=== PATIENT | female | born 1945 | race Native Hawaiian/Other Pacific Islander ===

== ENCOUNTER 2018-12-20 10:53 | Inpatient (IN) | payer MEDICARE, OTHER ==
[~2018-12-20] VITALS: Ht 162.6 cm; Wt 61.7 kg
[2018-12-20] MEDS ORDERED: ATEN25TA PO (11:27)
[2018-12-20] MEDS ORDERED: ZOLP5TAB8 PO (11:27)
[2018-12-20] MEDS ORDERED: PANT40TA4 PO (11:27)
[2018-12-20] MEDS ORDERED: METO-295 PO (11:27)
[2018-12-20] MEDS ORDERED: MECL12.582 PO (11:27)
[2018-12-20] MEDS ORDERED: PREG50CA PO (11:27)
[2018-12-20] MEDS ORDERED: AMIT25TA9 PO (11:27)
[2018-12-20] MEDS ORDERED: LEVE1000 PO (11:27)
[2018-12-20] MEDS ORDERED: TURM538C PO (11:27)
[2018-12-20] MEDS ORDERED: RANI-655 PO (11:27)
[2018-12-20] MEDS ORDERED: ROSU5TAB PO (11:27)
[2018-12-20] MEDS ORDERED: CHOL200078 PO (11:27)
[2018-12-20] MEDS ORDERED: GLUC-228 PO (11:27)
[2018-12-20] MEDS ORDERED: HYDR-3024 PO (11:27)
[2018-12-20] MEDS ORDERED: CETI-102 PO (11:27)
[2018-12-20 12:22] LABS: BASOPHILS # (AUTO) 0.1 K/uL (0.0-8.0); BASOPHILS % (AUTO) 1.2 % (0.0-2.0); EOSINOPHILS # (AUTO) 0.2 K/uL (0.0-0.7); HEMATOCRIT 41.3 % (31.2-41.9); HEMOGLOBIN 13.7 g/dL (10.9-14.3); LYMPHOCYTES # (AUTO) 1.8 K/uL (20.0-40.0); LYMPHOCYTES % (AUTO) 31.4 % (20.5-51.5); MEAN CORPUSCULAR HEMOGLOBIN 29.1 uug (24.7-32.8); MEAN CORPUSCULAR HGB CONC 33 g/dL (32.3-35.6); MEAN CORPUSCULAR VOLUME 87.8 fL (75.5-95.3); MONOCYTES # (AUTO) 0.4 K/uL (2.0-10.0); MONOCYTES % (AUTO) 7.3 % (0.0-11.0); NEUTROPHILS # (AUTO) 3.2 K/uL (1.8-8.9); NEUTROPHILS % (AUTO) 56.1 % (38.5-71.5); PLATELET COUNT (AUTO) 162 K/uL (179-408); WHITE BLOOD COUNT (AUTO) 5.7 K/uL (3.8-11.8)
[2018-12-20 12:27] LABS: CREATININE 0.9 mg/dL (0.6-1.3); POTASSIUM 4.5 mmol/L (3.5-5.1)
[2018-12-20] MEDS ORDERED: IOHEXOL 350 100 ML INFUS..BTL ONE (13:17)
[2018-12-20] MEDS ORDERED: SWABABLE VALVE TRANSFER SET EA MC ONE (13:18)
[2018-12-20] MEDS ORDERED: IV NORMAL SALINE 250 ML IV ONE (13:18)
[2018-12-20] MEDS ORDERED: IV NS 1000 ML 1,000 ML IV PRN ×2 (15:50→17:12)
[2018-12-20] MEDS ORDERED: ONDANSETRON 4 MG/2 ML VIAL IV PRN (16:00)
[2018-12-20] MEDS ORDERED: MECLIZINE HCL 25 MG TABLET PO PRN (16:00)
[2018-12-20] MEDS ORDERED: MAGNESIUM HYDROXIDE 30 ML LIQUID UDC PO PRN (16:00)
[2018-12-20] MEDS ORDERED: Z GUARD REMEDY PASTE 57 GM TUBE TOP PRN (16:00)
[2018-12-20 16:31] VITALS: BP 150/69
[2018-12-20] MEDS ORDERED: IBUPROFEN 400 MG TABLET PO PRN (16:45)
[2018-12-20] MEDS ORDERED: LEVO5TAB13 PO (17:47)
[2018-12-20] MEDS ORDERED: ZOLPIDEM 5 MG TABLET PO PRN (19:00)
[2018-12-20] MEDS ORDERED: hydrOXYzine HCL 10 MG TABLET PO PRN (19:00)
[2018-12-20] MEDS ORDERED: HOME MED MISCELLANEOUS XX SCH (19:00)
[2018-12-20] MEDS ORDERED: CETIRIZINE HCL 10 MG TABLET PO SCH (19:00)
[2018-12-20 19:59] VITALS: BP 91/56
[2018-12-21 05:40] VITALS: BP 90/62
[2018-12-21 06:35] LABS: BASOPHILS # (AUTO) 0.1 K/uL (0.0-8.0); BASOPHILS % (AUTO) 1.1 % (0.0-2.0); EOSINOPHILS # (AUTO) 0.2 K/uL (0.0-0.7); EOSINOPHILS % (AUTO) 3.4 % (0.0-7.0); HEMOGLOBIN 13.3 g/dL (10.9-14.3); LYMPHOCYTES # (AUTO) 2.2 K/uL (20.0-40.0); LYMPHOCYTES % (AUTO) 35.4 % (20.5-51.5); MEAN CORPUSCULAR HEMOGLOBIN 29.2 uug (24.7-32.8); MEAN CORPUSCULAR HGB CONC 33 g/dL (32.3-35.6); MONOCYTES # (AUTO) 0.4 K/uL (2.0-10.0); MONOCYTES % (AUTO) 6.5 % (0.0-11.0); NEUTROPHILS # (AUTO) 3.3 K/uL (1.8-8.9); NEUTROPHILS % (AUTO) 53.6 % (38.5-71.5); PLATELET COUNT (AUTO) 166 K/uL (179-408); RED BLOOD CELL COUNT(AUTO) 4.55 MIL/uL (3.63-4.92); WHITE BLOOD COUNT (AUTO) 6.2 K/uL (3.8-11.8)
[2018-12-21 06:45] LABS: CARBON DIOXIDE 29 mmol/L (21-32); CHLORIDE 106 mmol/L (98-107); GLUCOSE 92 mg/dL (74-106); PHOSPHOROUS 4.1 mg/dL (2.5-4.9); UREA NITROGEN, BLOOD 25 mg/dL (7-18)
[2018-12-21] MEDS ORDERED: PANTOPRAZOLE SODIUM 40 MG TABLET.DR PO SCH ×2 (07:00→09:00)
[2018-12-21] MEDS ORDERED: PREGABALIN 50 MG CAPSULE PO SCH (09:00)
[2018-12-21] MEDS ORDERED: ATENOLOL 25 MG TABLET PO SCH (09:00)
[2018-12-21] MEDS ORDERED: CHOLECALCIFEROL 1,000 UNIT TABLET PO SCH (09:00)
[2018-12-21 10:05] VITALS: BP 90/59
[2018-12-21 11:45] VITALS: BP 100/64
[2018-12-21] MEDS ORDERED: INFLUENZA VACCINE 2019-2020 0.5 ML DISP.SYRIN IM ONE (12:00)
[2018-12-21] MEDS ORDERED: AMITRIPTYLINE HCL 25 MG TABLET PO SCH (18:00)
[2018-12-21] MEDS ORDERED: ATORVASTATIN 10 MG TABLET PO SCH (21:00)
== END 2018-12-21 12:20 | disposition home or self-care (01) | DRG 149 ==
LOC: ER 10:53 → MEDSURG3 16:06
PROVIDERS: ADMIT Nurse Practitioner Acute Care; ATTEND Nurse Practitioner Acute Care
DX: H81.8X9 Other disorders of vestibular function, unspecified ear (principal); J98.11 Atelectasis; E78.5 Hyperlipidemia, unspecified; F41.9 Anxiety disorder, unspecified; R27.0 Ataxia, unspecified; K21.9 Gastro-esophageal reflux disease without esophagitis; Z90.710 Acquired absence of both cervix and uterus; Z82.3 Family history of stroke; Z79.899 Other long term (current) drug therapy; Z88.8 Allergy status to other drugs, medicaments and biological substances; Z88.6 Allergy status to analgesic agent; Z91.013 Allergy to seafood; R51 Headache; I70.0 Atherosclerosis of aorta; I10 Essential (primary) hypertension
CPT/HCPCS: 36415; 70030-TC; 70450; 71045; 83735; 84100; 85025; 85730; 93005; A4663; G0378; J7030; J7050; Q9967